=== PATIENT | female | born 1970 | race Caucasian/White ===

== ENCOUNTER 2018-01-20 08:41 | Emergency (ER) | payer MEDICAID ==
[2018-01-20] MEDS: KETOROLAC 30 MG INJ IV (09:51)
[2018-01-20] MEDS: SOD CHLORIDE 0.9% 500 ML IV (09:51)
[2018-01-20] MEDS: ONDANSETRON 4 MG INJ IV (09:51)
[2018-01-20 10:13] LABS: ADD MAN DIFF? NO
[2018-01-20 10:16] LABS: BASOPHIL # 0.1 10^3/ul (0.0-0.1); BASOPHILS % 0.4 % (0.0-2.0); HEMATOCRIT 40.9 % (37.0-47.0); HEMOGLOBIN 13.2 g/dl (12.0-16.0); LYMPHOCYTES # 1.4 10^3/ul (0.8-2.9); LYMPHOCYTES % 10.2 % (15.0-51.0); MEAN CORPUSCULAR HEMOGLOBIN 30.3 pg (29.0-33.0); MEAN CORPUSCULAR HGB CONC 32.3 g/dl (32.0-37.0); MEAN CORPUSCULAR VOLUME 93.8 fl (82.0-101.0); MEAN PLATELET VOLUME 9.6 fl (7.4-10.4); MONOCYTE # 1.1 10^3/ul (0.3-0.9); MONOCYTES % 7.7 % (0.0-11.0); NEUTROPHIL # 11.1 10^3/ul (1.6-7.5); NEUTROPHILS % 81.3 % (39.0-77.0); PLATELET COUNT 239 10^3/UL (140-415); RED BLOOD COUNT 4.36 10^6/ul (4.20-5.40); RED CELL DISTRIBUTION WIDTH 13.8 % (11.5-14.5)
[2018-01-20 10:16] LABS: WHITE BLOOD COUNT 13.7 10^3/ul (4.8-10.8)
[2018-01-20 10:19] LABS: ADD UMIC YES; UR ASCORBIC ACID NEGATIVE (NEGATIVE); UR BACTERIA FEW /HPF (NONE SEEN); UR BILIRUBIN (Dip) NEGATIVE (NEGATIVE); UR BLOOD (Dip) 2+ mg/dL (NEGATIVE); UR CLARITY CLEAR (CLEAR); UR COLOR YELLOW (YELLOW); UR GLUCOSE (Dip) NEGATIVE (NEGATIVE); UR KETONES (Dip) NEGATIVE (NEGATIVE); UR LEUKOCYTE ESTERASE (Dip) 2+ Leu/ul (NEGATIVE); UR NITRITE (Dip) NEGATIVE (NEGATIVE); UR RBC 1 /HPF (0-5); UR SPECIFIC GRAVITY (Dip) 1.005 (1.003-1.030); UR SQUAMOUS EPITHELIAL CELL FEW /HPF (FEW); UR TOTAL PROTEIN (Dip) NEGATIVE (NEGATIVE); UR UROBILINOGEN (Dip) NEGATIVE (NEGATIVE); UR WBC 11 /HPF (0-5)
[2018-01-20 10:39] LABS: ALBUMIN/GLOBULIN RATIO 1.08; ANION GAP 10 (8-16)
[2018-01-20 10:44] LABS: ALANINE AMINOTRANSFERASE 39 IU/L (13-69); ALBUMIN 3.8 g/dl (3.3-4.9); ALKALINE PHOSPHATASE 95 IU/L (42-121); ASPARTATE AMINO TRANSFERASE 30 IU/L (15-46); BILIRUBIN,INDIRECT 0.8 mg/dl (0-1.1); BILIRUBIN,TOTAL 0.8 mg/dl (0.2-1.3); BLOOD UREA NITROGEN 12 mg/dl (7-20); CARBON DIOXIDE 31 mmol/L (21-31); CHLORIDE 101 mmol/L (97-110); CREATININE 0.61 mg/dl (0.44-1.00); GLUCOSE 175 mg/dl (70-220); LIPASE 24 U/L (23-300); POTASSIUM 3.9 mmol/L (3.5-5.1); SODIUM 138 mmol/L (135-144); TOTAL PROTEIN 7.3 g/dl (6.1-8.1)
== END 2018-01-20 11:28 | disposition home or self-care (01) ==
LOC: FTE 08:41
DX: R10.13 Epigastric pain (principal); R11.10 Vomiting, unspecified
CPT/HCPCS: 36415; 80053; 81001; 81025; 83690; 85025; 96374; 96375; 99284-25

== ENCOUNTER 2018-01-20 18:04 | Inpatient (IN) | payer MEDICAID ==
[2018-01-20] MEDS: SODIUM CHLORIDE 0.9% 1L BAG IV* (19:44)
[2018-01-20] MEDS: CEFEPIME 2GM/50 ML (PMX) 50 ML IVPB (19:49)
[2018-01-20 19:52] LABS: ADD MAN DIFF? NO
[2018-01-20 19:55] LABS: BASOPHILS % 0.3 % (0.0-2.0); EOSINOPHILS % 0.2 % (0.0-7.0); HEMATOCRIT 39.4 % (37.0-47.0); HEMOGLOBIN 12.8 g/dl (12.0-16.0); LYMPHOCYTES # 0.9 10^3/ul (0.8-2.9); LYMPHOCYTES % 7.9 % (15.0-51.0); MEAN CORPUSCULAR HEMOGLOBIN 30.9 pg (29.0-33.0); MEAN CORPUSCULAR HGB CONC 32.5 g/dl (32.0-37.0); MEAN CORPUSCULAR VOLUME 95.2 fl (82.0-101.0); MEAN PLATELET VOLUME 9.7 fl (7.4-10.4); MONOCYTE # 0.4 10^3/ul (0.3-0.9); NEUTROPHIL # 10.4 10^3/ul (1.6-7.5); NEUTROPHILS % 87.8 % (39.0-77.0); PLATELET COUNT 212 10^3/UL (140-415); RED BLOOD COUNT 4.14 10^6/ul (4.20-5.40); RED CELL DISTRIBUTION WIDTH 13.9 % (11.5-14.5)
[2018-01-20 19:55] LABS: WHITE BLOOD COUNT 11.8 10^3/ul (4.8-10.8)
[2018-01-20 20:01] LABS: ADD UMIC YES; UR ASCORBIC ACID NEGATIVE (NEGATIVE); UR BACTERIA FEW /HPF (NONE SEEN); UR BILIRUBIN (Dip) NEGATIVE (NEGATIVE); UR BLOOD (Dip) 3+ mg/dL (NEGATIVE); UR CLARITY CLOUDY (CLEAR); UR COLOR AMBER (YELLOW); UR GLUCOSE (Dip) NEGATIVE (NEGATIVE); UR KETONES (Dip) NEGATIVE (NEGATIVE); UR LEUKOCYTE ESTERASE (Dip) 2+ Leu/ul (NEGATIVE); UR MUCUS FEW /HPF (NONE SEEN); UR NITRITE (Dip) NEGATIVE (NEGATIVE); UR NONSQUAMOUS EPITHELIAL CELL 2 /HPF (NONE SEEN); UR RBC > 182 /HPF (0-5); UR SQUAMOUS EPITHELIAL CELL MANY /HPF (FEW); UR TOTAL PROTEIN (Dip) 2+ mg/dl (NEGATIVE); UR UROBILINOGEN (Dip) 2+ mg/dL (NEGATIVE); UR WBC 80 /HPF (0-5)
[2018-01-20 20:09] LABS: INR 1.12; PROTIME 14.6 Sec (11.9-14.9); PT RATIO 1.1
[2018-01-20 20:10] LABS: PARTIAL THROMBOPLASTIN TIME 28.4 Sec (25.0-35.0)
[2018-01-20 20:17] LABS: ALANINE AMINOTRANSFERASE 39 IU/L (13-69); ALBUMIN 3.4 g/dl (3.3-4.9); ALBUMIN/GLOBULIN RATIO 1.03; ALKALINE PHOSPHATASE 94 IU/L (42-121); ANION GAP 11 (8-16); ASPARTATE AMINO TRANSFERASE 46 IU/L (15-46); BILIRUBIN,INDIRECT 0.7 mg/dl (0-1.1); BILIRUBIN,TOTAL 0.7 mg/dl (0.2-1.3); BLOOD UREA NITROGEN 19 mg/dl (7-20); CALCIUM 8.5 mg/dl (8.4-10.2); CARBON DIOXIDE 28 mmol/L (21-31); CHLORIDE 101 mmol/L (97-110); CREATININE 0.75 mg/dl (0.44-1.00); GLUCOSE 121 mg/dl (70-220); POTASSIUM 3.8 mmol/L (3.5-5.1); SODIUM 136 mmol/L (135-144); TOTAL PROTEIN 6.7 g/dl (6.1-8.1)
[2018-01-20 20:18] LABS: LACTIC ACID 1.1 mmol/L (0.5-2.0)
[2018-01-20 20:28] LABS: TROPONIN-I 0.072 ng/ml (0.00-0.12)
[2018-01-20 22:28] LABS: LACTIC ACID 1.3 mmol/L (0.5-2.0)
[2018-01-20] MEDS: MAGNESIUM CITRATE 300 ML BTL PO (23:13)
[2018-01-20] MEDS ORDERED: DOCUSATE SODIUM 100 MG CAP PO (23:30)
[2018-01-20] MEDS ORDERED: BISACODYL (EC) 5 MG TAB PO (23:30)
[2018-01-20] MEDS ORDERED: NACL 0.9% 3 ML SYG IV (23:30)
[2018-01-20] MEDS: SOD CHLORIDE 0.9% 1,000 ML IV (23:47)
[2018-01-20] MEDS: CIPROFLOXACIN 400MG/D5W 200 ML IVPB (23:47)
[2018-01-21 00:23] LABS: LACTIC ACID 1.1 mmol/L (0.5-2.0)
[2018-01-21] MEDS: PANTOPRAZOLE (EC) 40 MG TAB PO (05:24)
[2018-01-21 09:08] LABS: ADD MAN DIFF? NO
[2018-01-21 09:14] LABS: BASOPHILS % 0.4 % (0.0-2.0); EOSINOPHILS # 0.1 10^3/ul (0.0-0.5); EOSINOPHILS % 1.1 % (0.0-7.0); HEMATOCRIT 34.8 % (37.0-47.0); HEMOGLOBIN 11.1 g/dl (12.0-16.0); LYMPHOCYTES # 2.1 10^3/ul (0.8-2.9); LYMPHOCYTES % 20.7 % (15.0-51.0); MEAN CORPUSCULAR HEMOGLOBIN 30.5 pg (29.0-33.0); MEAN CORPUSCULAR HGB CONC 31.9 g/dl (32.0-37.0); MEAN CORPUSCULAR VOLUME 95.6 fl (82.0-101.0); MEAN PLATELET VOLUME 10.1 fl (7.4-10.4); MONOCYTES % 10.2 % (0.0-11.0); NEUTROPHIL # 6.7 10^3/ul (1.6-7.5); NEUTROPHILS % 67.4 % (39.0-77.0); PLATELET COUNT 189 10^3/UL (140-415); RED BLOOD COUNT 3.64 10^6/ul (4.20-5.40); RED CELL DISTRIBUTION WIDTH 14.4 % (11.5-14.5)
[2018-01-21] MEDS: CIPROFLOXACIN 400MG/D5W 200 ML IVPB (09:19)
[2018-01-21] MEDS: SOD CHLORIDE 0.9% 1,000 ML IV ×2 (09:19→20:11)
[2018-01-21 09:31] LABS: HEMOGLOBIN A1C 6.4 % (0-5.9)
[2018-01-21 09:40] LABS: ALANINE AMINOTRANSFERASE 50 IU/L (13-69); ALBUMIN 2.9 g/dl (3.3-4.9); ALBUMIN/GLOBULIN RATIO 0.93; ALKALINE PHOSPHATASE 67 IU/L (42-121); ANION GAP 10 (8-16); ASPARTATE AMINO TRANSFERASE 58 IU/L (15-46); BILIRUBIN,INDIRECT 0.4 mg/dl (0-1.1); BILIRUBIN,TOTAL 0.4 mg/dl (0.2-1.3); BLOOD UREA NITROGEN 12 mg/dl (7-20); CALCIUM 7.5 mg/dl (8.4-10.2); CARBON DIOXIDE 25 mmol/L (21-31); CHLORIDE 109 mmol/L (97-110); CHOL/HDL RATIO 3.3 RATIO; CHOLESTEROL 64 mg/dl (100-200); CREATININE 0.52 mg/dl (0.44-1.00); GLUCOSE 154 mg/dl (70-220); HDL CHOLESTEROL 19 mg/dl (34-88); LDL CHOLESTEROL,CALCULATED 23 mg/dl; MAGNESIUM 2.2 mg/dl (1.7-2.5); POTASSIUM 4.2 mmol/L (3.5-5.1); SODIUM 140 mmol/L (135-144); TRIGLYCERIDES 111 mg/dl (0-149)
[2018-01-21] MEDS ORDERED: GLUCOSE GEL 15 GRAM TUBE BUCCAL (16:30)
[2018-01-21] MEDS ORDERED: GLUCOSE GEL 15 GRAM TUBE PO ×2 (16:30)
[2018-01-21] MEDS ORDERED: DEXTROSE 50% 50 ML SYRINGE IV ×2 (16:30)
[2018-01-21] MEDS ORDERED: HYDROCODONE/APAP (5/325) TAB PO (16:30)
[2018-01-21] MEDS ORDERED: GLUCAGON 1 MG INJ IM (16:30)
[2018-01-21] MEDS: LEVOFLOXACIN 500MG/D5W (PMX) 100 ML IVPB (16:38)
[2018-01-21] MEDS: ACETAMINOPHEN 325 MG TAB PO (16:39)
[2018-01-21] MEDS: ENOXAPARIN 40 MG/0.4 ML SYG SC (16:43)
[2018-01-21] MEDS: INSULIN ASPART [NOVOLOG] 3 ML PEN SC ×2 (17:21→20:24)
[2018-01-21] MEDS: metFORMIN 500 MG TAB PO (17:23)
[2018-01-21] MEDS: ACCU-CHEK XX (20:24)
[2018-01-22 05:55] LABS: ADD MAN DIFF? NO
[2018-01-22] MEDS: SOD CHLORIDE 0.9% 1,000 ML IV ×2 (05:56→15:10)
[2018-01-22] MEDS: PANTOPRAZOLE (EC) 40 MG TAB PO (05:56)
[2018-01-22 06:05] LABS: BASOPHILS % 0.5 % (0.0-2.0); EOSINOPHILS # 0.1 10^3/ul (0.0-0.5); EOSINOPHILS % 1.1 % (0.0-7.0); HEMATOCRIT 35.3 % (37.0-47.0); HEMOGLOBIN 11.4 g/dl (12.0-16.0); MEAN CORPUSCULAR HEMOGLOBIN 30.5 pg (29.0-33.0); MEAN CORPUSCULAR HGB CONC 32.3 g/dl (32.0-37.0); MEAN CORPUSCULAR VOLUME 94.4 fl (82.0-101.0); MEAN PLATELET VOLUME 10.4 fl (7.4-10.4); MONOCYTE # 0.7 10^3/ul (0.3-0.9); MONOCYTES % 8.8 % (0.0-11.0); NEUTROPHIL # 5.1 10^3/ul (1.6-7.5); NEUTROPHILS % 64.3 % (39.0-77.0); PLATELET COUNT 210 10^3/UL (140-415); RED BLOOD COUNT 3.74 10^6/ul (4.20-5.40)
[2018-01-22 06:41] LABS: ANION GAP 12 (8-16); BLOOD UREA NITROGEN 8 mg/dl (7-20); CARBON DIOXIDE 26 mmol/L (21-31); CHLORIDE 106 mmol/L (97-110); CREATININE 0.55 mg/dl (0.44-1.00); GLUCOSE 116 mg/dl (70-220); POTASSIUM 3.9 mmol/L (3.5-5.1); SODIUM 140 mmol/L (135-144)
[2018-01-22] MEDS: INSULIN ASPART [NOVOLOG] 3 ML PEN SC ×2 (08:00→11:48)
[2018-01-22] MEDS: metFORMIN 500 MG TAB PO (08:20)
[2018-01-22] MEDS: ENOXAPARIN 40 MG/0.4 ML SYG SC (08:21)
== END 2018-01-22 15:18 | disposition home or self-care (01) | DRG 872 ==
LOC: MS4 22:11 → E/R 18:04 → PP2 01-21 18:45
DX: A41.9 Sepsis, unspecified organism (principal); N39.0 Urinary tract infection, site not specified; K56.7 Ileus, unspecified; E11.9 Type 2 diabetes mellitus without complications; E66.9 Obesity, unspecified; Z68.33 Body mass index [BMI] 33.0-33.9, adult; Z90.49 Acquired absence of other specified parts of digestive tract
CPT/HCPCS: 36415; 71045; 74019; 74176; 80048; 80053; 80061; 81001; 82962; 83036; 83605; 83735; 84443; 84484; 85025; 85610; 85730; 87040; 87086; 93005; 96365; 96375; 99291-25